=== PATIENT | female | born 1985 | race Caucasian/White ===

== ENCOUNTER 2022-09-19 09:59 | Outpatient (REF) | payer BC, SELFPAY ==
[2022-09-19 15:20] LABS: Calculated LDL 150 mg/dL (<100); Cholesterol 220 mg/dL (<200); HDL Cholesterol 61 mg/dL (40-60); TSH (W/Ref FT4) 1.02 uIU/mL (0.36-3.74); Triglyceride 47 mg/dL (<150)
== END 2022-09-19 10:00 | disposition home or self-care (01) ==
LOC: NCHCN 09:59
PROVIDERS: Visit Provider Family Medicine
DX: E78.5 Hyperlipidemia, unspecified (principal); G47.00 Insomnia, unspecified; F90.8 Attention-deficit hyperactivity disorder, other type
CPT/HCPCS: 80061; 84443

== ENCOUNTER 2023-02-20 16:36 | Outpatient (REF) | payer BC, SELFPAY ==
[2023-02-20 17:07] LABS: HCT 41.4 % (36.0-46.0); HGB 13.6 g/dL (11.2-15.7); MCH 29.8 pg (27.0-33.0); MCHC 32.9 % (32.0-36.0); MCV 91 fL (80-95); MPV 9.9 fL (8.0-11.0); Platelet Count 264 10^3/uL (130-400); RBC 4.56 10^6/uL (3.93-5.22); RDW 11.5 % (11.7-14.6); RDW-SD 38.2 fL
[2023-02-21 19:17] LABS: Estradiol 63 pg/mL (See Note)
[2023-02-21 19:29] LABS: FSH 8.3 mIU/mL (See Note); LH 31.2 mIU/mL (See Note); Prolactin 6.6 ng/mL (See Note)
[2023-02-26 16:09] LABS: Testosterone, Free 0.52 ng/dL (<0.13-1.00); Testosterone, Total 30 ng/dL (8-60)
== END 2023-02-20 16:37 | disposition home or self-care (01) ==
LOC: NCHCN 16:36
PROVIDERS: Visit Provider Family Medicine
DX: N92.1 Excessive and frequent menstruation with irregular cycle (principal); R10.31 Right lower quadrant pain; E28.2 Polycystic ovarian syndrome
CPT/HCPCS: 84402; 84403; 85027; 82670; 83001; 83002; 84146

== ENCOUNTER 2023-03-08 15:02 | Outpatient (REF) | payer BC, SELFPAY ==
[2023-03-08 15:54] LABS: Abs Immature Grans 0.01 10^3/uL (0.0-0.06); Absolute Basophil Count 0.02 10^3/uL (0.0-0.2); Absolute Eosinophil Count 0.24 10^3/uL (0.0-0.7); Absolute Lymphocyte Count 1.38 10^3/uL (1.2-3.4); Absolute Neutrophil Count 1.92 10^3/uL (1.2-6.7); Basophils % 0.5; Eosinophils % 6.2; HCT 44.9 % (36.0-46.0); HGB 14.7 g/dL (11.2-15.7); Immature Grans % 0.3; Lymphocytes % 35.7; MCH 29.9 pg (27.0-33.0); MCHC 32.7 % (32.0-36.0); MCV 91 fL (80-95); MPV 10.2 fL (8.0-11.0); Monocytes % 7.8; Neutrophils % 49.5; Platelet Count 304 10^3/uL (130-400); RBC 4.91 10^6/uL (3.93-5.22); RDW 11.7 % (11.7-14.6); RDW-SD 39.2 fL; WBC 3.87 10^3/uL (4.4-10.8)
[2023-03-08 18:02] LABS: Vitamin B12 463 pg/mL (193-986)
[2023-03-12 11:37] LABS: Methylmalonic Acid 0.14 nmol/mL (<=0.40)
== END 2023-03-08 15:03 | disposition home or self-care (01) ==
LOC: NCHCN 15:02
PROVIDERS: PCP Family Medicine; Visit Provider Family Medicine
DX: R10.31 Right lower quadrant pain (principal); R19.7 Diarrhea, unspecified; N92.1 Excessive and frequent menstruation with irregular cycle; Z51.81 Encounter for therapeutic drug level monitoring; Z79.899 Other long term (current) drug therapy
CPT/HCPCS: 80186; 82607; 85025

== ENCOUNTER 2024-10-27 17:41 | Outpatient (REF) | payer BC, SELFPAY ==
--- NOTE | 2024-10-27 14:45 | PAPFT_PTH ---
[facility]: [facility]erra [id number]GE/SX: 38/F ROOM: RE10/27/[address]: Janey Walker : 1985 BED: DIS: 10/27/2024 SPEC #: [id number] RECD: 10/28/24 13:22 STATUS: MERCEDES REAmanda #: [id number] BREANNE: 10/27/24 14:[address]: Janey Walker DEPT: [facility] Cytology RECD BY: Ro Schreiber Tissues: 1 - CX/ENDOCX FOR PAP SMEARS Procedures: PAP THIN PREP/[facility] Screening HPV DNA PROBE Comments: [id number] (HPV 16 & 18/45)
== END 2024-10-27 17:42 | disposition home or self-care (01) ==
LOC: NCHCN 17:41
PROVIDERS: PCP Family Medicine; Visit Provider Family Medicine
DX: Z11.51 Encounter for screening for human papillomavirus (HPV) (principal); Z01.419 Encounter for gynecological examination (general) (routine) without abnormal findings
CPT/HCPCS: 88142; 87624

== ENCOUNTER 2025-04-14 18:38 | Outpatient (REF) | payer BC, SELFPAY ==
[2025-04-14 21:37] LABS: Abs Immature Grans 0.02 10^3/uL (0.0-0.06); HCT 40.2 % (36.0-46.0); HGB 13.4 g/dL (11.2-15.7); Immature Grans % 0.3 %; MCH 29.5 pg (27.0-33.0); MCHC 33.3 % (32.0-36.0); MCV 89 fL (80-95); MPV 9.8 fL (8.0-11.0); Platelet Count 289 10^3/uL (130-400); RBC 4.54 10^6/uL (3.93-5.22); RDW 11.5 % (11.7-14.6); RDW-SD 37.2 fL; WBC 6.56 10^3/uL (4.4-10.8)
[2025-04-14 21:53] LABS: ALT 27 U/L (14-59); AST 22 U/L (15-37); Albumin 4.6 g/dL (3.4-5.0); Alkaline Phosphatase 42 U/L (46-116); Anion Gap 8.5 mmol/L (3-11); BUN 15 mg/dL (7-18); Bilirubin, Total 0.3 mg/dL (0.2-1.0); CO2 28.5 mmol/L (21.0-32.0); Calcium 9.4 mg/dL (8.5-10.1); Chloride 102 mmol/L (98-107); Estimated GFR 114.16 (mL/min/1.73m2); Glucose 92 mg/dL (74-106); Potassium 3.9 mmol/L (3.5-5.1); Sodium 139 mmol/L (136-145); TSH (W/Ref FT4) 1.51 uIU/mL (0.36-3.74); Total Protein 7.8 g/dL (6.4-8.2)
[2025-04-16 09:09] LABS: Lyme Ab w Rflx to Lyme Confirm Negative (Negative)
[2025-04-17 22:47] LABS: B. miyamotoi PCR Negative (Negative); Babesia divergens/MO-1 Negative (Negative); Ehrlichia muris eauclairensis Negative (Negative)
[2025-04-19 09:15] LABS: Iron 42 ug/dL (50-170); Total Iron Binding Capacity 332 ug/dL (250-450); Transferrin Sat 13 % (15-50)
[2025-04-19 09:28] LABS: Ferritin 35 ng/mL (8-252)
== END 2025-04-14 18:39 | disposition home or self-care (01) ==
LOC: LBN 18:38
PROVIDERS: PCP Family Medicine; Visit Provider Physician Assistant Medical
DX: R50.9 Fever, unspecified (principal)
CPT/HCPCS: 80053; 87798; 82728; 83540; 83550; 84443; 85025; 86618